=== PATIENT | male | born 1945 | race Caucasian/White ===

== ENCOUNTER 2017-01-17 08:33 | Emergency (ER) | payer MEDICARE ==
[~2017-01-17] VITALS: Ht 180.3 cm; Wt 84.0 kg
[~2017-01-17 08:33] MED LIST: ALIROCUMAB 150 MG; ASPI-515 PO; CALC200T20 PO; CARV25TA12 PO; LISI5TAB7 PO; MULT-257 PO; OMEP-110 PO; [UNRECOGNIZED DRUG - OTHER]
[2017-01-17] MEDS ORDERED: SODIUM CHLORIDE 0.9% 1,000ML IVBOLUS ONE (09:00)
[2017-01-17] MEDS ORDERED: ACETAMINOPHEN 500 MG TABLET PO ONE (09:00)
[2017-01-17] MEDS ORDERED: SODIUM CHLORIDE FLUSH 10ML SYR IVF ONE (09:00)
[2017-01-17] MEDS ORDERED: ACETAMINOPHEN 500 MG TABLET ONE (09:12)
[2017-01-17 09:22] LABS: PATH.CAST-FLAG NOT PRESENT; SPERM-FLAG NOT PRESENT; SRC-FLAG NOT PRESENT; XTAL-FLAG NOT PRESENT; YLC-FLAG NOT PRESENT
[2017-01-17 09:40] LABS: HEMOGLOBIN 14.7 g/dL (13.7-18.0); WHITE BLOOD COUNT 9.5 x10^3/uL (3.4-10)
[2017-01-17 09:49] LABS: ASPARTATE AMINO TRANSFERASE 28 U/L (15-37); BLOOD UREA NITROGEN 13 mg/dL (7-18)
[2017-01-17 09:54] LABS: IS PT STATUS REG ER OR PRE ER? YES
[2017-01-17 10:04] VITALS: BP 117/58
[2017-01-17] MEDS ORDERED: CEFTRIAXONE PMX 1GM/50ML 50 ML ONE (10:27)
[2017-01-17] MEDS ORDERED: CEFTRIAXONE PMX 1GM/50ML 50 ML IV ONE (10:30)
== END 2017-01-17 10:57 | disposition home or self-care (01) ==
LOC: ED 10:01
DX: R50.9 Fever, unspecified (principal); R06.02 Shortness of breath; I11.9 Hypertensive heart disease without heart failure; E78.5 Hyperlipidemia, unspecified; Z87.891 Personal history of nicotine dependence; Z85.46 Personal history of malignant neoplasm of prostate
CPT/HCPCS: 36415; 71010; 80053; 81001; 83605; 83735; 84443; 84484; 85025; 87040; 93005; 96361; 96365; 99285; J0696; J7030

== ENCOUNTER 2017-02-03 17:22 | Inpatient (IN) | payer MEDICARE ==
[~2017-02-03] VITALS: Ht 177.8 cm; Wt 92.7 kg
[2017-02-03] MEDS ORDERED: IBUPROFEN 200 MG TABLET ONE (17:53)
[2017-02-03] MEDS ORDERED: SODIUM CHLORIDE FLUSH 10ML SYR IVF ONE (18:00)
[2017-02-03] MEDS ORDERED: SODIUM CHLORIDE 0.9% 1,000ML IVBOLUS ONE (18:00)
[2017-02-03] MEDS ORDERED: IBUPROFEN 200 MG TABLET PO ONE (18:00)
[2017-02-03 18:02] LABS: RAPID INFLUENZA A Negative (Negative); RAPID INFLUENZA B Negative (Negative)
[2017-02-03 18:19] LABS: HEMATOCRIT 40.2 % (39.2-51.8); HEMOGLOBIN 13.6 g/dL (13.7-18.0); WHITE BLOOD COUNT 10.5 x10^3/uL (3.4-10)
[2017-02-03 18:32] LABS: BLOOD UREA NITROGEN 12 mg/dL (7-18)
[2017-02-03 18:36] LABS: ASPARTATE AMINO TRANSFERASE 13 U/L (15-37)
[2017-02-03] MEDS ORDERED: ENALAPRILAT 1.25 MG/ML, 2ML IVPush PRN (21:00)
[2017-02-03] MEDS ORDERED: TEMAZEPAM 15 MG CAPSULE PO PRN (21:00)
[2017-02-03] MEDS ORDERED: ENOXAPARIN 40 MG/0.4 ML SQ SCH (21:00)
[2017-02-03] MEDS ORDERED: DOCUSATE 100 MG CAPSULE PO PRN (21:00)
[2017-02-03] MEDS ORDERED: SODIUM CHLORIDE FLUSH 10ML SYR IVF PRN (21:00)
[2017-02-03 22:03] LABS: HIV 1&2 ANTIBODY SCREEN Nonreactive (Nonreactive); HIV-1 p24 ANTIGEN Nonreactive (Nonreactive)
[2017-02-04 00:15] VITALS: BP 132/79
[2017-02-04] MEDS: SODIUM CHLORIDE 0.9% 1,000 ML IV SCH ×4 (00:35→18:19)
[2017-02-04] MEDS: ACETAMINOPHEN 325 MG TABLET PO PRN ×4 (00:35→20:28)
[2017-02-04] MEDS: LISINOPRIL 5 MG TABLET PO SCH ×3 (02:08→19:56)
[2017-02-04] MEDS: CARVEDILOL 25 MG TABLET PO SCH ×2 (02:09→09:14)
[2017-02-04 06:14] VITALS: BP 96/66
[2017-02-04 07:54] VITALS: BP 104/53
[2017-02-04] MEDS ORDERED: OMEPRAZOLE 20 MG CAPSULE.DR PO SCH (09:00)
[2017-02-04] MEDS ORDERED: MULTIVITAMIN 1 TABLET PO SCH (09:00)
[2017-02-04] MEDS ORDERED: ASPIRIN 81 MG TABLET EC PO SCH (09:00)
[2017-02-04] MEDS ORDERED: CALCIUM CITRATE 950 MG TABLET PO SCH (09:00)
[2017-02-04 13:16] VITALS: BP 98/55
[2017-02-04 19:44] VITALS: BP 100/52
[2017-02-04] MEDS: CARVEDILOL 12.5 MG TABLET PO SCH (19:56)
[2017-02-04] MEDS ORDERED: DOCUSATE 100 MG CAPSULE PO PRN (21:00)
[2017-02-04] MEDS ORDERED: TEMAZEPAM 15 MG CAPSULE PO PRN (21:00)
[2017-02-04] MEDS ORDERED: ENALAPRILAT 1.25 MG/ML, 2ML IVPush PRN (21:00)
[2017-02-04] MEDS: ENOXAPARIN 40 MG/0.4 ML SQ SCH (22:59)
[2017-02-05 01:18] VITALS: BP 108/55
[2017-02-05] MEDS: SODIUM CHLORIDE 0.9% 1,000 ML IV SCH ×3 (01:51→19:46)
[2017-02-05] MEDS: ACETAMINOPHEN 325 MG TABLET PO PRN ×2 (02:30→19:44)
[2017-02-05 03:07] LABS: BLD PARASITE SMEAR NO ORGANISMS SEEN (NONE SEEN)
[2017-02-05 07:47] VITALS: BP 92/70
[2017-02-05 07:48] VITALS: BP 125/76
[2017-02-05] MEDS: CEFTRIAXONE PMX 2GM/50ML 50 ML IV SCH (08:17)
[2017-02-05] MEDS: LISINOPRIL 5 MG TABLET PO SCH ×2 (08:17→19:45)
[2017-02-05] MEDS: CARVEDILOL 12.5 MG TABLET PO SCH ×2 (08:17→19:45)
[2017-02-05] MEDS: ASPIRIN 81 MG TABLET EC PO SCH (08:18)
[2017-02-05] MEDS: OMEPRAZOLE 20 MG CAPSULE.DR PO SCH (08:18)
[2017-02-05] MEDS: MULTIVITAMIN 1 TABLET PO SCH (08:18)
[2017-02-05] MEDS: CALCIUM CITRATE 950 MG TABLET PO SCH (08:18)
[2017-02-05 15:53] VITALS: BP 120/71
[2017-02-05 18:42] VITALS: BP 125/72
[2017-02-05] MEDS: ENOXAPARIN 40 MG/0.4 ML SQ SCH (19:45)
[2017-02-06] MEDS: ACETAMINOPHEN 325 MG TABLET PO PRN (02:00)
[2017-02-06 03:08] VITALS: BP 116/65
[2017-02-06] MEDS: SODIUM CHLORIDE 0.9% 1,000 ML IV SCH ×3 (04:21→21:12)
[2017-02-06 06:11] LABS: HEMATOCRIT 32.3 % (39.2-51.8); HEMOGLOBIN 10.9 g/dL (13.7-18.0); WHITE BLOOD COUNT 6.6 x10^3/uL (3.4-10)
[2017-02-06 07:33] VITALS: BP 132/73
[2017-02-06] MEDS: MULTIVITAMIN 1 TABLET PO SCH (08:17)
[2017-02-06] MEDS: CEFTRIAXONE PMX 2GM/50ML 50 ML IV SCH (08:17)
[2017-02-06] MEDS: CARVEDILOL 12.5 MG TABLET PO SCH ×2 (08:18→21:08)
[2017-02-06] MEDS: ASPIRIN 81 MG TABLET EC PO SCH (08:18)
[2017-02-06] MEDS: CALCIUM CITRATE 950 MG TABLET PO SCH (08:18)
[2017-02-06] MEDS: OMEPRAZOLE 20 MG CAPSULE.DR PO SCH (08:18)
[2017-02-06] MEDS: LISINOPRIL 5 MG TABLET PO SCH ×2 (08:19→21:08)
[2017-02-06 13:44] VITALS: BP 152/78
[2017-02-06 20:05] VITALS: BP 138/77
[2017-02-06] MEDS: ENOXAPARIN 40 MG/0.4 ML SQ SCH (21:09)
[2017-02-07 03:10] VITALS: BP 128/76
[2017-02-07] MEDS: SODIUM CHLORIDE 0.9% 1,000 ML IV SCH (04:34)
[2017-02-07] MEDS: ACETAMINOPHEN 325 MG TABLET PO PRN (04:36)
[2017-02-07 07:34] VITALS: BP 122/73
[2017-02-07 08:19] LABS: BINAX NOW MALARIA OBC PASS (PASS); MALARIA RAPID DIAGNOSTIC TEST Negative (Negative)
[2017-02-07] MEDS: CEFTRIAXONE PMX 2GM/50ML 50 ML IV SCH (08:30)
[2017-02-07] MEDS: OMEPRAZOLE 20 MG CAPSULE.DR PO SCH (08:31)
[2017-02-07] MEDS: MULTIVITAMIN 1 TABLET PO SCH (08:31)
[2017-02-07] MEDS: ASPIRIN 81 MG TABLET EC PO SCH (08:32)
[2017-02-07] MEDS: CARVEDILOL 12.5 MG TABLET PO SCH (08:32)
[2017-02-07] MEDS: CALCIUM CITRATE 950 MG TABLET PO SCH (08:32)
[2017-02-07] MEDS: LISINOPRIL 5 MG TABLET PO SCH (08:33)
[2017-02-07] MEDS ORDERED: CEFD300C37 PO ×2 (10:25→10:53)
[2017-02-07] MEDS ORDERED: CEFDINIR 300 MG CAPSULE PO SCH (11:00)
[2017-02-07 12:20] VITALS: BP 144/78
== END 2017-02-07 12:33 | disposition home or self-care (01) | DRG 690 ==
LOC: ED 20:11 → EDIP 20:46 → 4NOR 23:51
PROVIDERS: ADMIT Hospitalist; ATTEND Hospitalist
DX: N12 Tubulo-interstitial nephritis, not specified as acute or chronic (principal); A68.9 Relapsing fever, unspecified; D63.8 Anemia in other chronic diseases classified elsewhere; B96.20 Unspecified Escherichia coli [E. coli] as the cause of diseases classified elsewhere; E78.00 Pure hypercholesterolemia, unspecified; E78.5 Hyperlipidemia, unspecified; F10.20 Alcohol dependence, uncomplicated; G89.29 Other chronic pain; W57.XXXA Bitten or stung by nonvenomous insect and other nonvenomous arthropods, initial encounter; I10 Essential (primary) hypertension; I25.10 Atherosclerotic heart disease of native coronary artery without angina pectoris; M19.90 Unspecified osteoarthritis, unspecified site; R32 Unspecified urinary incontinence; Z80.42 Family history of malignant neoplasm of prostate; Z85.46 Personal history of malignant neoplasm of prostate; Z87.442 Personal history of urinary calculi; Z87.891 Personal history of nicotine dependence; Z90.79 Acquired absence of other genital organ(s); I25.2 Old myocardial infarction; Z95.5 Presence of coronary angioplasty implant and graft
CPT/HCPCS: 36415; 71010; 76770; 80053; 81001; 83605; 84145; 84439; 84443; 85025; 85651; 86140; 86703; 86803; 87040; 87077; 87086; 87186; 87207; 87324; 87400; 87899; 88313; 93005; 93306; 99285; J0696; J1650; G0435; J7030

== ENCOUNTER 2017-05-31 15:06 | Emergency (ER) | payer MEDICARE ==
[~2017-05-31] VITALS: Ht 180.3 cm; Wt 86.7 kg
[~2017-05-31 15:06] MED LIST changes: +CEFD300C37 PO
[2017-05-31] MEDS ORDERED: ASPIRIN 81 MG TABLET CHEW ONE (15:42)
[2017-05-31] MEDS ORDERED: ASPIRIN 81 MG TABLET CHEW PO ONE (16:00)
[2017-05-31] MEDS ORDERED: SODIUM CHLORIDE FLUSH 10ML SYR IVF ONE (16:00)
[2017-05-31 16:06] LABS: BASOPHILS # (AUTO) 0.03 x10^3/uL (0-0.1); BASOPHILS % (AUTO) 1 % (0-1); EOSINOPHILS # (AUTO) 0.48 x10^3/uL (0-0.4); EOSINOPHILS % (AUTO) 7 % (1-7); LYMPHOCYTES # (AUTO) 2.35 x10^3/uL (1-3.4); LYMPHOCYTES % (AUTO) 35 % (22-44); MD NO; MEAN CORPUSCULAR HEMOGLOBIN 31.2 pg (27.5-34.5); MEAN CORPUSCULAR HGB CONC 33.5 g/dL (33.2-36.2); MEAN CORPUSCULAR VOLUME 93.2 fL (81-97); MONOCYTES # (AUTO) 0.47 x10^3/uL (0.2-0.8); MONOCYTES % (AUTO) 7 % (2-9); NEUTROPHILS # (AUTO) 3.45 x10^3/uL (1.8-6.8); NEUTROPHILS % (AUTO) 51 % (42-75); PLATELET COUNT 206 x10^3/uL (130-400); RED BLOOD COUNT 4.22 x10^6/uL (4.38-5.82); RED CELL DISTRIBUTION WIDTH 13.2 % (9.4-14.8)
[2017-05-31 16:11] LABS: PROTHROMBIN TIME 10.3 Seconds (9.6-11.5)
[2017-05-31 16:17] LABS: ALBUMIN 3.6 g/dL (3.4-5.0); ANION GAP 3 mmol/L (5-15); CALCIUM 8.3 mg/dL (8.5-10.1); CHLORIDE 106 mmol/L (98-107)
[2017-05-31 16:22] LABS: ALANINE AMINOTRANSFERASE 26 U/L (12-78); ALKALINE PHOSPHATASE 54 U/L (45-117); BILIRUBIN,TOTAL 0.2 mg/dL (0.2-1.0); CREATININE 1.08 mg/dL (0.7-1.3); TOTAL PROTEIN 7.1 g/dL (6.4-8.2); TROPONIN I < 0.015 ng/mL (0.000-0.045)
[2017-05-31 17:07] VITALS: BP 120/76
== END 2017-05-31 17:21 | disposition home or self-care (01) ==
LOC: ED 17:00
DX: I49.3 Ventricular premature depolarization (principal); R07.89 Other chest pain; E78.5 Hyperlipidemia, unspecified; I25.2 Old myocardial infarction; Z79.82 Long term (current) use of aspirin; Z95.5 Presence of coronary angioplasty implant and graft
CPT/HCPCS: 36415; 71046; 80053; 83735; 84484; 85025; 85610; 93005; 99285

== ENCOUNTER → 2017-08-16 | Outpatient (CLI) | payer MEDICARE | END | disposition home or self-care (01) | LOC: CVU 12:43 | PROVIDERS: ATTEND Internal Medicine Cardiovascular Disease | DX: I08.0 Rheumatic disorders of both mitral and aortic valves (principal); I77.810 Thoracic aortic ectasia; I25.119 Atherosclerotic heart disease of native coronary artery with unspecified angina pectoris; I25.2 Old myocardial infarction; Z85.46 Personal history of malignant neoplasm of prostate; Z87.891 Personal history of nicotine dependence | CPT/HCPCS: 93306 ==

== ENCOUNTER 2017-10-01 17:49 | Inpatient (IN) | payer MEDICARE ==
[~2017-10-01] VITALS: Ht 180.3 cm; Wt 75.8 kg
[2017-10-01 19:36] LABS: BASOPHILS # (AUTO) 0.04 x10^3/uL (0-0.1); BASOPHILS % (AUTO) 0 % (0-1); EOSINOPHILS # (AUTO) 0.95 x10^3/uL (0-0.4); EOSINOPHILS % (AUTO) 11 % (1-7); LYMPHOCYTES # (AUTO) 2.96 x10^3/uL (1-3.4); LYMPHOCYTES % (AUTO) 33 % (22-44); MD NO; MEAN CORPUSCULAR HEMOGLOBIN 32.1 pg (27.5-34.5); MEAN CORPUSCULAR HGB CONC 33.7 g/dL (33.2-36.2); MEAN CORPUSCULAR VOLUME 95.2 fL (81-97); MEAN PLATELET VOLUME 8.1 fL (7.4-10.4); MONOCYTES # (AUTO) 0.71 x10^3/uL (0.2-0.8); MONOCYTES % (AUTO) 8 % (2-9); NEUTROPHILS # (AUTO) 4.41 x10^3/uL (1.8-6.8); NEUTROPHILS % (AUTO) 49 % (42-75); PLATELET COUNT 222 x10^3/uL (130-400); RED BLOOD COUNT 4.46 x10^6/uL (4.38-5.82); RED CELL DISTRIBUTION WIDTH 13.2 % (9.4-14.8)
[2017-10-01 19:46] LABS: ALBUMIN 3.9 g/dL (3.4-5.0); ANION GAP 5 mmol/L (5-15); CALCIUM 8.6 mg/dL (8.5-10.1); CHLORIDE 106 mmol/L (98-107); CREATININE 1.21 mg/dL (0.7-1.3)
[2017-10-01 19:50] LABS: T4 (THYROXINE) 7.4 mcg/dL (4.5-12.1); TROPONIN I < 0.015 ng/mL (0.000-0.045)
[2017-10-01] MEDS ORDERED: LISINOPRIL 5 MG TABLET PO SCH (21:00)
[2017-10-01] MEDS ORDERED: ONDANSETRON ODT 4 MG PO PRN (21:00)
[2017-10-01] MEDS ORDERED: HYDROcodone/APAP 5/325 TABLET PO PRN (21:00)
[2017-10-01] MEDS ORDERED: ONDANSETRON 2MG/ML, 2ML IVPush PRN (21:00)
[2017-10-01] MEDS ORDERED: LABETALOL 5MG/ML, 20ML IVPush PRN (21:00)
[2017-10-01] MEDS ORDERED: DOCUSATE 100 MG CAPSULE PO PRN (21:00)
[2017-10-01] MEDS ORDERED: BISACODYL 10 MG SUPP PR PRN (21:00)
[2017-10-01] MEDS ORDERED: ENALAPRILAT 1.25 MG/ML, 2ML IVPush PRN (21:00)
[2017-10-01] MEDS ORDERED: hydrALAzine 20 MG/ML, 1ML IVPush PRN (21:00)
[2017-10-01] MEDS ORDERED: ACETAMINOPHEN 325 MG TABLET PO PRN (21:00)
[2017-10-01 21:30] LABS: TROPONIN I < 0.015 ng/mL (0.000-0.045)
[2017-10-01] MEDS: CARVEDILOL 25 MG TABLET PO SCH (21:46)
[2017-10-01 21:47] VITALS: BP 134/74
[2017-10-01] MEDS: ENOXAPARIN 40 MG/0.4 ML SQ SCH (23:02)
[2017-10-01] MEDS ORDERED: ACET325C PO (23:55)
[2017-10-01] MEDS ORDERED: IBUP-1223 PO (23:55)
[2017-10-01] MEDS ORDERED: SACU1TAB PO (23:55)
[2017-10-02 01:37] LABS: TROPONIN I < 0.015 ng/mL (0.000-0.045)
[2017-10-02 03:20] VITALS: BP 111/60
[2017-10-02] MEDS ORDERED: PNEUMOCOCCAL 23 VACCINE IM-VACC ONE (06:00)
[2017-10-02 07:28] VITALS: BP 122/66
[2017-10-02] MEDS: MULTIVITAMIN 1 TABLET PO SCH (10:08)
[2017-10-02] MEDS: CALCIUM CITRATE 950 MG TABLET PO SCH (10:08)
[2017-10-02] MEDS: SACUBITRIL/VALSARTAN 24MG-26MG TAB PO SCH ×2 (10:08→20:38)
[2017-10-02] MEDS: OMEPRAZOLE 20 MG CAPSULE.DR PO SCH (10:08)
[2017-10-02] MEDS: ASPIRIN 81 MG TABLET EC PO SCH (10:08)
[2017-10-02] MEDS: CARVEDILOL 25 MG TABLET PO SCH ×2 (10:09→20:37)
[2017-10-02 13:08] VITALS: BP 108/57
[2017-10-02 20:00] VITALS: BP 149/82
[2017-10-02] MEDS: ENOXAPARIN 40 MG/0.4 ML SQ SCH (22:12)
[2017-10-03 00:24] VITALS: BP 127/80
[2017-10-03 07:13] VITALS: BP 133/73
[2017-10-03] MEDS: MULTIVITAMIN 1 TABLET PO SCH (09:57)
[2017-10-03] MEDS: SACUBITRIL/VALSARTAN 24MG-26MG TAB PO SCH ×2 (09:57→22:08)
[2017-10-03] MEDS: CALCIUM CITRATE 950 MG TABLET PO SCH (09:57)
[2017-10-03] MEDS: OMEPRAZOLE 20 MG CAPSULE.DR PO SCH (09:58)
[2017-10-03] MEDS: ASPIRIN 81 MG TABLET EC PO SCH (09:58)
[2017-10-03] MEDS: CARVEDILOL 25 MG TABLET PO SCH ×2 (09:59→22:08)
[2017-10-03 13:05] VITALS: BP 120/65
[2017-10-03 19:05] VITALS: BP 99/57
[2017-10-03 20:40] VITALS: BP 138/81
[2017-10-03] MEDS: ENOXAPARIN 40 MG/0.4 ML SQ SCH (22:08)
[2017-10-04 00:31] VITALS: BP 112/69
[2017-10-04 07:30] VITALS: BP 125/74
[2017-10-04] MEDS: CALCIUM CITRATE 950 MG TABLET PO SCH (10:35)
[2017-10-04] MEDS: MULTIVITAMIN 1 TABLET PO SCH (10:36)
[2017-10-04] MEDS: CARVEDILOL 25 MG TABLET PO SCH (10:36)
[2017-10-04] MEDS: SACUBITRIL/VALSARTAN 24MG-26MG TAB PO SCH (10:36)
[2017-10-04] MEDS: OMEPRAZOLE 20 MG CAPSULE.DR PO SCH (10:36)
[2017-10-04] MEDS: ASPIRIN 81 MG TABLET EC PO SCH (10:36)
[2017-10-04 13:02] VITALS: BP 121/77
[2017-10-05] MEDS ORDERED: ALIR150P INJ (07:44)
== END 2017-10-04 13:39 | disposition home or self-care (01) | DRG 308 ==
LOC: ED 20:39 → EDIP 21:03 → 5SO 21:51 → DCLOUNGE 10-04 13:30
PROVIDERS: ADMIT Family Medicine; ATTEND Family Medicine
DX: I49.3 Ventricular premature depolarization (principal); J18.1 Lobar pneumonia, unspecified organism; I25.10 Atherosclerotic heart disease of native coronary artery without angina pectoris; I25.5 Ischemic cardiomyopathy; K21.9 Gastro-esophageal reflux disease without esophagitis; R73.03 Prediabetes; R32 Unspecified urinary incontinence; I11.9 Hypertensive heart disease without heart failure; E78.5 Hyperlipidemia, unspecified; Z95.5 Presence of coronary angioplasty implant and graft; I25.2 Old myocardial infarction; Z80.0 Family history of malignant neoplasm of digestive organs; Z80.42 Family history of malignant neoplasm of prostate; Z85.46 Personal history of malignant neoplasm of prostate; Z85.828 Personal history of other malignant neoplasm of skin; Z87.891 Personal history of nicotine dependence; Z23 Encounter for immunization; Z88.8 Allergy status to other drugs, medicaments and biological substances; Z79.899 Other long term (current) drug therapy
CPT/HCPCS: 36415; 71045; 80048; 82040; 83735; 84436; 84443; 84484; 85025; 90732; 93005; 93454; 99156; 99157; 99285; C1894; J1650; C1730; C2630; Q9967

== ENCOUNTER 2017-10-05 06:40 | Observation (INO) | payer MEDICARE ==
[~2017-10-05] VITALS: Ht 180.3 cm; Wt 84.1 kg
[~2017-10-05 06:40] MED LIST changes: +ACET325C PO; +IBUP-1223 PO; +SACU1TAB PO
[2017-10-05] MEDS ORDERED: SODIUM CHLORIDE 0.9% 1,000 ML IV SCH (07:20)
[2017-10-05 07:30] VITALS: BP 133/76
[2017-10-05] MEDS ORDERED: ALIR150P INJ (07:44)
[2017-10-05] MEDS ORDERED: MIDAZOLAM 1 MG/ML, 2ML ONE (07:52)
[2017-10-05] MEDS ORDERED: ISOPROTERENOL 0.2MG/ML, 5ML ONE (07:52)
[2017-10-05] MEDS ORDERED: LIDOCAINE/PF 1%, 30ML ONE (07:52)
[2017-10-05] MEDS ORDERED: FENTANYL PF 100 MCG/2ML ONE (07:52)
[2017-10-05] MEDS ORDERED: HEPARIN 1,000 UNITS/ML, 10ML ONE (09:14)
[2017-10-05] MEDS ORDERED: PROTAMINE SULFATE 10 MG/ML, 5ML ONE (10:16)
[2017-10-05] MEDS: MEXILETINE 150 MG CAPSULE PO SCH ×2 (10:30→19:22)
[2017-10-05] MEDS ORDERED: ALIROCUMAB INJ SCH (10:30)
[2017-10-05] MEDS ORDERED: ACETAMINOPHEN 325 MG TABLET PO PRN (10:30)
[2017-10-05] MEDS ORDERED: ZOLPIDEM 5MG TABLET PO PRN (10:30)
[2017-10-05] MEDS: CLOPIDOGREL 75 MG TABLET PO SCH (10:30)
[2017-10-05 13:21] VITALS: BP 117/57
[2017-10-05] MEDS ORDERED: ONDANSETRON 2MG/ML, 2ML IVPush ONE (15:00)
[2017-10-05 18:51] VITALS: BP 115/67
[2017-10-05] MEDS: CARVEDILOL 25 MG TABLET PO SCH (19:57)
[2017-10-05] MEDS: SACUBITRIL/VALSARTAN 24MG-26MG TAB PO SCH (20:02)
[2017-10-05] MEDS: ACETAMINOPHEN 325 MG TABLET PO SCH (20:03)
[2017-10-06] VITALS (7 sets, daily range): BP systolic 96–163; BP diastolic 50–88
[2017-10-06] MEDS: MEXILETINE 150 MG CAPSULE PO SCH ×3 (03:27→19:51)
[2017-10-06] MEDS: CALCIUM CITRATE 950 MG TABLET PO SCH (09:52)
[2017-10-06] MEDS: SACUBITRIL/VALSARTAN 24MG-26MG TAB PO SCH ×2 (09:53→19:51)
[2017-10-06] MEDS: MULTIVITAMIN 1 TABLET PO SCH (09:54)
[2017-10-06] MEDS: IBUPROFEN 800 MG TABLET PO SCH (09:54)
[2017-10-06] MEDS: ASPIRIN 81 MG TABLET EC PO SCH (09:54)
[2017-10-06] MEDS: CARVEDILOL 25 MG TABLET PO SCH ×2 (09:54→19:51)
[2017-10-06] MEDS: OMEPRAZOLE 20 MG CAPSULE.DR PO SCH (09:54)
[2017-10-06] MEDS: CLOPIDOGREL 75 MG TABLET PO SCH (09:54)
[2017-10-06] MEDS ORDERED: FILTER 0.22 MICRON IV ONE (10:00)
[2017-10-06] MEDS ORDERED: AMIODARONE 150 MG in DEXTROSE 5% 100 ML IV ONE (10:00)
[2017-10-06] MEDS ORDERED: AMIODARONE 50 MG/ML, 3ML IVPush ONE (10:00)
[2017-10-06] MEDS: AMIODARONE 200 MG TABLET PO SCH ×3 (12:14→22:26)
[2017-10-06] MEDS: ACETAMINOPHEN 325 MG TABLET PO SCH (19:54)
[2017-10-07 00:05] VITALS: BP 131/77
[2017-10-07] MEDS: MEXILETINE 150 MG CAPSULE PO SCH (05:24)
[2017-10-07 07:10] VITALS: BP 133/78
[2017-10-07] MEDS: IBUPROFEN 800 MG TABLET PO SCH (09:00)
[2017-10-07] MEDS: AMIODARONE 200 MG TABLET PO SCH (09:20)
[2017-10-07] MEDS: MULTIVITAMIN 1 TABLET PO SCH (09:20)
[2017-10-07] MEDS: CARVEDILOL 25 MG TABLET PO SCH (09:20)
[2017-10-07] MEDS: ASPIRIN 81 MG TABLET EC PO SCH (09:20)
[2017-10-07] MEDS: CLOPIDOGREL 75 MG TABLET PO SCH (09:21)
[2017-10-07] MEDS: SACUBITRIL/VALSARTAN 24MG-26MG TAB PO SCH (09:21)
[2017-10-07] MEDS: CALCIUM CITRATE 950 MG TABLET PO SCH (09:21)
[2017-10-07] MEDS: OMEPRAZOLE 20 MG CAPSULE.DR PO SCH (09:21)
[2017-10-07] MEDS ORDERED: MEXI150C PO (10:02)
[2017-10-07] MEDS ORDERED: AMIO200T42 PO (10:02)
== END 2017-10-07 14:57 | disposition home or self-care (01) ==
LOC: CACL 06:40 → ORIP 10:22 → 5SO 11:23
PROVIDERS: ADMIT Internal Medicine Cardiovascular Disease; ATTEND Internal Medicine Cardiovascular Disease
DX: I25.10 Atherosclerotic heart disease of native coronary artery without angina pectoris (principal); R00.2 Palpitations; R42 Dizziness and giddiness; I49.3 Ventricular premature depolarization; I25.5 Ischemic cardiomyopathy; K21.9 Gastro-esophageal reflux disease without esophagitis; I25.2 Old myocardial infarction; E78.5 Hyperlipidemia, unspecified; Z87.891 Personal history of nicotine dependence; Z85.46 Personal history of malignant neoplasm of prostate; Z98.61 Coronary angioplasty status
CPT/HCPCS: 85347; 93005; 93308; 93321; 93325; 93454; 93654; 96374; 99156; 99157; C1730; C1894; C2630; G0378; J0282; J1644; J2250; J2720; J3010; J3490; Q9967

== ENCOUNTER 2018-02-05 02:35 | Emergency (ER) | payer MEDICARE ==
[~2018-02-05] VITALS: Ht 180.3 cm; Wt 86.4 kg
[~2018-02-05 02:35] MED LIST changes: +ALIR150P INJ; +AMIO200T42 PO; +MEXI150C PO
[2018-02-05 02:39] VITALS: BP 162/90
== END 2018-02-05 03:28 | disposition home or self-care (01) ==
LOC: ED 03:27
DX: L03.114 Cellulitis of left upper limb (principal); I10 Essential (primary) hypertension; E78.5 Hyperlipidemia, unspecified; I25.2 Old myocardial infarction; E78.00 Pure hypercholesterolemia, unspecified; Z85.46 Personal history of malignant neoplasm of prostate; Z95.5 Presence of coronary angioplasty implant and graft
CPT/HCPCS: 99283

== ENCOUNTER 2019-03-10 05:17 | Emergency (ER) | payer MEDICARE ==
[~2019-03-10] VITALS: Ht 180.3 cm; Wt 85.0 kg
[~2019-03-10 05:17] MED LIST changes: -ACET325C PO; +ACET325C3 PO
[2019-03-10 05:19] VITALS: BP 167/95
== END 2019-03-10 05:48 | disposition home or self-care (01) ==
LOC: ED 05:29
DX: T16.1XXA Foreign body in right ear, initial encounter (principal); I25.2 Old myocardial infarction; I10 Essential (primary) hypertension; E78.5 Hyperlipidemia, unspecified; Z98.61 Coronary angioplasty status; Z85.46 Personal history of malignant neoplasm of prostate; X58.XXXA Exposure to other specified factors, initial encounter; Y93.89 Activity, other specified; Y92.89 Other specified places as the place of occurrence of the external cause; Y99.8 Other external cause status
CPT/HCPCS: 99281

== ENCOUNTER 2019-03-16 00:11 | Emergency (ER) | payer MEDICARE ==
[~2019-03-16] VITALS: Ht 180.3 cm; Wt 86.3 kg
[2019-03-16 00:15] VITALS: BP 176/84
--- NOTE | 2019-03-16 00:39 | NUR ---
PT TO ROOM. BLADDER SCAN SHOWED >720ML. MD LEACH FRAGOSO PLACEMENT. FRAGOSO PLACED WITH EASE. AT THIS TIME SLIGHTLY OVER 900ML URINE OUT. PT TOLERATED PROCEDURE WELL. NOW AT BEDSIDE.
[2019-03-16 01:12] LABS: ALBUMIN 3.5 g/dL (3.4-5.0); ANION GAP 3 mmol/L (5-15); BASOPHILS # (AUTO) 0.04 x10^3/uL (0-0.1); BASOPHILS % (AUTO) 1 % (0-1); CALCIUM 8.7 mg/dL (8.5-10.1); CHLORIDE 107 mmol/L (98-107); CREATININE 1.01 mg/dL (0.7-1.3); EOSINOPHILS # (AUTO) 0.56 x10^3/uL (0-0.4); EOSINOPHILS % (AUTO) 7 % (1-7); LYMPHOCYTES % (AUTO) 28 % (22-44); MD NO; MEAN CORPUSCULAR HEMOGLOBIN 33.3 pg (27.5-34.5); MEAN CORPUSCULAR HGB CONC 32.6 g/dL (33.2-36.2); MEAN PLATELET VOLUME 8.1 fL (7.4-10.4); MONOCYTES # (AUTO) 0.54 x10^3/uL (0.2-0.8); MONOCYTES % (AUTO) 7 % (2-9); NEUTROPHILS # (AUTO) 4.31 x10^3/uL (1.8-6.8); NEUTROPHILS % (AUTO) 57 % (42-75); PLATELET COUNT 198 x10^3/uL (130-400); RED BLOOD COUNT 4.03 x10^6/uL (4.38-5.82); RED CELL DISTRIBUTION WIDTH 13.2 % (9.4-14.8)
[2019-03-16 01:31] LABS: MICROSCOPIC NOT IND
[2019-03-16 01:38] LABS: CULTURE INDICATED? NO
== END 2019-03-16 02:15 | disposition home or self-care (01) ==
LOC: ED 00:20
DX: R33.9 Retention of urine, unspecified (principal); I11.9 Hypertensive heart disease without heart failure; E78.00 Pure hypercholesterolemia, unspecified; G89.29 Other chronic pain; I25.2 Old myocardial infarction; E78.5 Hyperlipidemia, unspecified; Z85.46 Personal history of malignant neoplasm of prostate; Z87.891 Personal history of nicotine dependence; Z98.61 Coronary angioplasty status; Z98.52 Vasectomy status
CPT/HCPCS: 36415; 51702; 80048; 81003; 82040; 85025; 99284

== ENCOUNTER 2019-03-17 20:17 | Emergency (ER) | payer MEDICARE ==
[~2019-03-17] VITALS: Ht 180.3 cm; Wt 84.7 kg
--- NOTE | 2019-03-17 20:51 | NUR ---
pt to room from lobby
--- NOTE | 2019-03-17 21:13 | NUR ---
PT TO CT.
--- NOTE | 2019-03-17 21:35 | NUR ---
pt to ed for "disorientation" lasting 0.5-1 second, followed immediately by double vision lasting 90 seconds. pt states all s/s have resolved and has no complaints at this time. Dr. Giraldo to bs for assessment. orders recevied. ct complete and resulted. labor service representative to bs for draw. awaiting resutls.
[2019-03-17 21:40] LABS: BASOPHILS # (AUTO) 0.03 x10^3/uL (0-0.1); BASOPHILS % (AUTO) 1 % (0-1); EOSINOPHILS % (AUTO) 9 % (1-7); LYMPHOCYTES % (AUTO) 33 % (22-44); MD NO; MEAN CORPUSCULAR HEMOGLOBIN 33.3 pg (27.5-34.5); MEAN CORPUSCULAR HGB CONC 32.6 g/dL (33.2-36.2); MEAN CORPUSCULAR VOLUME 102.1 fL (81-97); MEAN PLATELET VOLUME 7.9 fL (7.4-10.4); MONOCYTES # (AUTO) 0.54 x10^3/uL (0.2-0.8); MONOCYTES % (AUTO) 8 % (2-9); NEUTROPHILS # (AUTO) 3.23 x10^3/uL (1.8-6.8); NEUTROPHILS % (AUTO) 49 % (42-75); PLATELET COUNT 216 x10^3/uL (130-400); RED BLOOD COUNT 4.05 x10^6/uL (4.38-5.82); RED CELL DISTRIBUTION WIDTH 13.5 % (9.4-14.8)
[2019-03-17 21:52] LABS: ALBUMIN 3.6 g/dL (3.4-5.0); ANION GAP 1 mmol/L (5-15); CALCIUM 8.6 mg/dL (8.5-10.1); CHLORIDE 109 mmol/L (98-107); CREATININE 1.51 mg/dL (0.7-1.3)
--- NOTE | 2019-03-17 21:55 | NUR ---
ALL RESULTS ARE BACK AT THIS TIME. CHART UP FOR RECHECK.
--- NOTE | 2019-03-17 21:55 | NUR ---
RECEIVED REPORT FROM ELLIOT GARNER. ASSUMING CARE AT THIS TIME.
--- NOTE | 2019-03-17 21:56 | NUR ---
report to PATSY Elizabeth to assume care at this time.
[2019-03-17 22:54] VITALS: BP 143/81
== END 2019-03-17 22:56 | disposition home or self-care (01) ==
LOC: ED 22:05
DX: H53.2 Diplopia (principal); R41.0 Disorientation, unspecified; Z59.0 Homelessness; I25.2 Old myocardial infarction; E78.00 Pure hypercholesterolemia, unspecified; G89.29 Other chronic pain; E78.5 Hyperlipidemia, unspecified; I11.9 Hypertensive heart disease without heart failure; Z87.891 Personal history of nicotine dependence; Z98.52 Vasectomy status; Z90.79 Acquired absence of other genital organ(s); Z98.61 Coronary angioplasty status
CPT/HCPCS: 36415; 70450; 80048; 82040; 85025; 93005; 99284

== ENCOUNTER 2019-03-18 14:21 | Emergency (ER) | payer MEDICARE ==
[~2019-03-18] VITALS: Ht 180.3 cm; Wt 84.0 kg
[2019-03-18 14:22] VITALS: BP 156/75
--- NOTE | 2019-03-18 14:52 | NUR ---
Bedoya removed per order. Pt tolerated well, site CDI.
== END 2019-03-18 14:54 ==
LOC: ED 14:48
DX: R33.9 Retention of urine, unspecified (principal); I10 Essential (primary) hypertension; I25.2 Old myocardial infarction; E78.5 Hyperlipidemia, unspecified; Z85.46 Personal history of malignant neoplasm of prostate; Z98.61 Coronary angioplasty status; Z90.79 Acquired absence of other genital organ(s); Z98.52 Vasectomy status
CPT/HCPCS: 99281

== ENCOUNTER 2019-05-08 11:17 | Outpatient (CLI) | payer MEDICARE | END 2019-05-08 23:59 | disposition home or self-care (01) | LOC: CFH 11:17 | PROVIDERS: ATTEND Internal Medicine Cardiovascular Disease | DX: C61 Malignant neoplasm of prostate (principal); E78.5 Hyperlipidemia, unspecified; I25.10 Atherosclerotic heart disease of native coronary artery without angina pectoris; I25.2 Old myocardial infarction; I42.9 Cardiomyopathy, unspecified; R73.01 Impaired fasting glucose; Z98.61 Coronary angioplasty status | CPT/HCPCS: 71046 ==

== ENCOUNTER 2019-06-09 19:26 | Emergency (ER) | payer MEDICARE ==
[~2019-06-09] VITALS: Ht 180.3 cm; Wt 86.0 kg
[2019-06-09 19:47] VITALS: BP 156/80
== END 2019-06-09 20:36 | disposition home or self-care (01) ==
LOC: ED 20:00
DX: L03.011 Cellulitis of right finger (principal); I10 Essential (primary) hypertension; I25.2 Old myocardial infarction; E78.5 Hyperlipidemia, unspecified
CPT/HCPCS: 99283

== ENCOUNTER → 2019-08-30 | Outpatient (CLI) | payer MEDICARE | END | disposition home or self-care (01) | LOC: CVU 16:12 | PROVIDERS: ATTEND Internal Medicine Cardiovascular Disease | DX: I08.3 Combined rheumatic disorders of mitral, aortic and tricuspid valves (principal); I25.10 Atherosclerotic heart disease of native coronary artery without angina pectoris; I42.9 Cardiomyopathy, unspecified | CPT/HCPCS: 93306 ==

== ENCOUNTER 2019-09-26 07:40 | Outpatient (CLI) | payer MEDICARE ==
[~2019-09-26 07:40] MED LIST changes: +REGADENOSON 0.4 MG/5 ML SYRINGE ONE
== END 2019-09-26 23:59 | disposition home or self-care (01) ==
LOC: CFH 07:40
PROVIDERS: ATTEND Internal Medicine Cardiovascular Disease
DX: I21.19 ST elevation (STEMI) myocardial infarction involving other coronary artery of inferior wall (principal); I25.10 Atherosclerotic heart disease of native coronary artery without angina pectoris
CPT/HCPCS: 78452; 93017; A9502; J2785

== ENCOUNTER → 2019-10-17 | Outpatient (CLI) | payer MEDICARE ==
[~2019-10-17] MED LIST changes: -REGADENOSON 0.4 MG/5 ML SYRINGE ONE
[2019-10-17 13:04] LABS: MEAN CORPUSCULAR HEMOGLOBIN 33.7 pg (27.5-34.5); MEAN CORPUSCULAR HGB CONC 33.3 g/dL (33.2-36.2); MEAN CORPUSCULAR VOLUME 101.1 fL (81-97); MEAN PLATELET VOLUME 7.8 fL (7.4-10.4); PLATELET COUNT 221 x10^3/uL (130-400); RED CELL DISTRIBUTION WIDTH 12.9 % (9.4-14.8)
[2019-10-17 13:38] LABS: CHLORIDE 108 mmol/L (98-107)
[2019-10-17 14:07] LABS: ALANINE AMINOTRANSFERASE 26 U/L (12-78); ALBUMIN 3.6 g/dL (3.4-5.0); ALKALINE PHOSPHATASE 52 U/L (45-117); ANION GAP 5 mmol/L (5-15); BILIRUBIN,TOTAL 0.4 mg/dL (0.2-1.0); CALCIUM 8.5 mg/dL (8.5-10.1); CHOL/HDL RATIO 3.3; CHOLESTEROL, TOTAL 152 mg/dL (140-239); CREATININE 1.03 mg/dL (0.7-1.3); HDL CHOL % 30 % (26-37); HDL CHOLESTEROL (DIRECT) 46 mg/dL (40-60); LDL CHOLESTEROL,CALCULATED 82 mg/dL (54-169); LDL/HDL RATIO 1.8 (0.5-3.0); TOTAL PROTEIN 6.7 g/dL (6.4-8.2); TRIGLYCERIDES 119 mg/dL (50-200); VLDL CHOLESTEROL 24 mg/dL (0-25)
== END | disposition home or self-care (01) ==
LOC: CFH 09:51
PROVIDERS: ATTEND Internal Medicine Cardiovascular Disease
DX: I25.10 Atherosclerotic heart disease of native coronary artery without angina pectoris (principal); I25.2 Old myocardial infarction; I10 Essential (primary) hypertension; E78.5 Hyperlipidemia, unspecified; I42.9 Cardiomyopathy, unspecified; R00.2 Palpitations; R73.01 Impaired fasting glucose
CPT/HCPCS: 36415; 80053; 80061; 83036; 84443; 85027

== ENCOUNTER 2019-12-16 15:30 | Emergency (ER) | payer MEDICARE ==
[~2019-12-16] VITALS: Ht 180.3 cm; Wt 82.5 kg
[2019-12-16 15:33] VITALS: BP 168/87
[2019-12-16 16:24] LABS: BASOPHILS # (AUTO) 0.04 x10^3/uL (0-0.1); BASOPHILS % (AUTO) 1 % (0-1); EOSINOPHILS % (AUTO) 6 % (1-7); LYMPHOCYTES # (AUTO) 1.69 x10^3/uL (1-3.4); LYMPHOCYTES % (AUTO) 31 % (22-44); MD NO; MEAN CORPUSCULAR HEMOGLOBIN 33.3 pg (27.5-34.5); MEAN CORPUSCULAR VOLUME 100.7 fL (81-97); MEAN PLATELET VOLUME 7.7 fL (7.4-10.4); MONOCYTES # (AUTO) 0.41 x10^3/uL (0.2-0.8); MONOCYTES % (AUTO) 7 % (2-9); NEUTROPHILS # (AUTO) 3.08 x10^3/uL (1.8-6.8); NEUTROPHILS % (AUTO) 56 % (42-75); PLATELET COUNT 212 x10^3/uL (130-400); RED BLOOD COUNT 3.89 x10^6/uL (4.38-5.82); RED CELL DISTRIBUTION WIDTH 13.7 % (9.4-14.8)
[2019-12-16] MEDS ORDERED: SODIUM CHLORIDE FLUSH 10ML SYR IVF ONE (16:30)
--- NOTE | 2019-12-16 16:30 | NUR ---
OFF FLOOR TO MRI
[2019-12-16 16:35] LABS: INTERNATIONAL NORMALIZED RATIO 1.01 (0.93-1.1); PROTHROMBIN TIME 10.4 Seconds (9.6-11.5)
[2019-12-16 16:36] LABS: ALBUMIN 3.7 g/dL (3.4-5.0); ANION GAP 6 mmol/L (5-15); CALCIUM 8.5 mg/dL (8.5-10.1); CHLORIDE 107 mmol/L (98-107); CREATININE 1.06 mg/dL (0.7-1.3)
== END 2019-12-16 18:07 | disposition home or self-care (01) ==
LOC: ED 16:54
DX: H53.122 Transient visual loss, left eye (principal); R94.31 Abnormal electrocardiogram [ECG] [EKG]; R51 Headache; E78.5 Hyperlipidemia, unspecified; I25.2 Old myocardial infarction; G89.29 Other chronic pain; Z87.891 Personal history of nicotine dependence; Z85.46 Personal history of malignant neoplasm of prostate; Z98.61 Coronary angioplasty status
CPT/HCPCS: 36415; 70551; 80048; 82040; 85025; 85610; 93005; 99285

== ENCOUNTER 2020-03-23 08:13 | Outpatient (CLI) | payer MEDICARE | END 2020-03-23 23:59 | disposition home or self-care (01) | LOC: CFH 08:13 | PROVIDERS: ATTEND Internal Medicine Cardiovascular Disease | DX: U07.1 COVID-19 (principal); C61 Malignant neoplasm of prostate; E78.5 Hyperlipidemia, unspecified; I25.10 Atherosclerotic heart disease of native coronary artery without angina pectoris; I25.2 Old myocardial infarction; I42.9 Cardiomyopathy, unspecified; R00.2 Palpitations; R51.9 Headache, unspecified; R73.01 Impaired fasting glucose; Z98.61 Coronary angioplasty status | CPT/HCPCS: 71046 ==

== ENCOUNTER 2020-10-29 09:28 | Outpatient (CLI) | payer MEDICARE ==
[~2020-10-29 09:28] MED LIST changes: -ALIR150P INJ; +ALIR150P3 INJ; -ASPI-515 PO; +ASPI-963 PO
== END 2020-10-29 23:59 | disposition home or self-care (01) ==
LOC: RAD 09:28
PROVIDERS: ATTEND Family Medicine
DX: Z02.9 Encounter for administrative examinations, unspecified (principal)